=== PATIENT | male | born 1970 | race American Indian/Alaskan Native ===

== ENCOUNTER 2022-06-03 07:42 | Outpatient (CLI) | payer OTHER ==
--- NOTE | 2022-06-03 11:39 | XRay Report ---
Lumbar spine, 3 views HISTORY: Back pain COMPARISON: None FINDINGS: Alignment is preserved. Vertebral body heights are maintained. There is mild disc space hei ght loss of the lower thoracic spine. Lumbar disc spaces are preserved with small marginal osteophyte s. Moderate lower lumbar facet arthropathy L3-S1. There is no evidence of fracture. Soft tissues are unremarkable. IMPRESSION: No acute findings. Lower lumbar spondylosis, as above. Signer Name: Leonard Allison MD Signed: 06/03/2022 11:33 AM Workstation Name: [employer]
--- NOTE | 2022-06-03 11:42 | XRay Report ---
Cervical spine, 4 views HISTORY: Neck, Back pain COMPARISON: None FINDINGS: The cervical spine is only adequately visualized through C6 on lateral view. Cervical spina l alignment is preserved. Disc spaces appear preserved with prominent anterior osteophytes at C2-C3, C4-C5, and C5-C6. Mild to moderate multilevel facet arthropathy, greatest at C3-C4. There is no evide nce of fracture. Prevertebral soft tissues are within normal limits. IMPRESSION: 1. No acute findings. Degenerative changes, as above Signer Name: Leonard Allison MD Signed: 06/03/2022 11:35 AM Workstation Name: [email or web address]
--- NOTE | 2022-06-03 11:49 | XRay Report ---
Bilateral knee radiographs, 2 views of each knee provided. HISTORY: Bilateral knee pain COMPARISON: None FINDINGS: Right knee: There is moderate tricompartmental osteoarthritis of the right knee, preferentially invol ving the patellofemoral and medial compartment. No acute fracture or joint effusion. Left knee: Moderate tricompartmental osteoarthritis of the left knee, preferentially involving the me dial compartment. No acute fracture or joint effusion. Signer Name: Leonard Allison MD Signed: 06/03/2022 11:38 AM Workstation Name: [employer]
== END 2022-06-03 07:43 | disposition home or self-care (01) ==
LOC: XRAY 07:42
PROVIDERS: ATTEND Internal Medicine
DX: M17.0 Bilateral primary osteoarthritis of knee (principal); M25.78 Osteophyte, vertebrae; M47.812 Spondylosis without myelopathy or radiculopathy, cervical region; M47.817 Spondylosis without myelopathy or radiculopathy, lumbosacral region
CPT/HCPCS: 72040; 72100